=== PATIENT | female | born 1950 | race Caucasian/White ===

== ENCOUNTER 2017-03-30 09:38 | Emergency (ER) | payer OTHER, MEDICAID ==
[2017-03-30 09:44] VITALS: PULSE 84
--- NOTE | 2017-03-30 09:55 | EDPHY ---
H & P Time Seen by Provider: 03/30/17 09:46 HPI/ROS: CHIEF COMPLAINT: Injury to left forearm HISTORY OF PRESENT ILLNESS: Patient fell last night and tripped in to a car. She hit her head and her left forearm. No loss of consciousness and no headache today no vomiting. No visual symptoms. She has pain in her distal left forearm which is associated with bruising and swelling and is worse with movement of her hand or palpation. Started just after the fall. No syncope or loss of consciousness. REVIEW OF SYSTEMS: Eye: no change in vision Pulmonary: no cough or SOB Abdomen: No abdominal pain Musculoskeletal: no back pain or neck pain Skin: Bruising left forearm Neuro: no headache : No hematuria. A comprehensive 10 point review of systems is otherwise negative aside from elements mentioned in the history of present illness. PAST MEDICAL HISTORY: Includes bipolar and thyroid Social history: Smoker General Appearance: Alert and conversant, cooperative. Eyes: Pupils equal reactive ENT, Mouth: No facial deformity or swelling Respiratory: Normal respiratory effort, breath sounds equal, lungs are clear to auscultation. Cardiovascular: Regular rate and rhythm. Gastrointestinal: Abdomen is soft and non tender. Neurological: Alert and oriented x3. Normally conversant. Face symmetric, normal movement and sensation in all extremities. Skin: Bruising volar left distal forearm Musculoskeletal: Normal range of motion of the left shoulder and elbow. Hand is not tender. Wrist is not tender including snuffbox. Emergency Department course/MDM: Cervical thoracic and lumbar spine nontender. Spine cleared clinically. Does not have risk factors to suggest high likelihood of intracranial bleed or skull fracture. Left forearm x-ray. 1040: Discussed x-rays with the patient, reviewed them with her on the computer system. Warned she needs mandatory orthopedic follow-up this week, casting versus reduction in the office. Smoking Status: Current every day smoker Constitutional: Initial Vital Signs Temperature (C) 36.6 C 03/30/17 09:41 Heart Rate 84 03/30/17 09:41 Respiratory Rate 17 03/30/17 09:41 Blood Pressure 157/102 H 03/30/17 09:41 O2 Sat (%) 94 03/30/17 09:41 O2 Delivery Mode Room Air Allergies/Adverse Reactions: codeine Allergy (Verified 03/30/17 09:40) erythromycin base Allergy (Verified 03/30/17 09:40) meperidine [From Demerol] Allergy (Verified 03/30/17 09:40) morphine Allergy (Verified 03/30/17 09:40) Home Medications: Medication Instructions Recorded Geodon 03/30/17 LaMICtal 03/30/17 Synthroid 03/30/17 Wellbutrin 100mg (*) 03/30/17 Medical Decision Making - Diagnostics Imaging Results: Imaging Impressions Forearm X-Ray 03/30/17 09:52 Impression: Transverse minimally comminuted fracture of the distal radial metaphysis with mild dorsal angulation. Wrist X-Ray 03/30/17 10:40 Impression: Transverse comminuted intra-articular fracture of the distal radial metaphysis with mild dorsal angulation. Left wrist x-ray shows transverse distal radius fracture with very mild shorteningt. Procedures: Procedure: Splint placement. A left forearm Ortho Glass sugar-tong splint was applied. After application of the splint I returned and re-examined the patient. The splint was adequately immobilizing the joint and distal to the splint the patient's circulation and sensation was intact. Departure - Departure Disposition: Home, Routine, Self-Care Clinical Impression: Radius distal fracture Qualifiers: Encounter type: initial encounter Fracture type: closed Fracture morphology: other extra-articular Laterality: left Qualified Code(s): S52.552A - Other extraarticular fracture of lower end of left radius, initial encounter for closed fracture Condition: Good Instructions: Wrist Fracture in Adults (ED) Referrals: Luis Alberto Moran PA [Primary Care Provider] - As per Instructions Migue Hairston MD [Medical Doctor] - As per Instructions (Follow-up with this retail account specialist later this week for definitive evaluation and probable casting.)
[2017-03-30 11:38] VITALS: BP 151/87; RESP 16; TEMP 98.8; O2SAT 96
== END 2017-03-30 11:36 | disposition home or self-care (01) ==
DX: S52.572A Other intraarticular fracture of lower end of left radius, initial encounter for closed fracture (principal); F17.200 Nicotine dependence, unspecified, uncomplicated; W01.198A Fall on same level from slipping, tripping and stumbling with subsequent striking against other object, initial encounter

== ENCOUNTER → 2017-12-24 | Outpatient (CLI) | payer OTHER, MEDICAID ==
[~2017-12-24] MED LIST: LIDOCAINE 1% 300 MG/30 ML SDV ONE
== END ==
LOC: FIMAGING 08:34
PROVIDERS: ATTEND Surgery
PROC: 0G9K3ZX Drainage of Thyroid Gland, Percutaneous Approach, Diagnostic (ICD-10-PCS; principal; 2017-12-24)
DX: E04.1 Nontoxic single thyroid nodule (principal)

== ENCOUNTER 2018-02-08 06:26 | Observation (INO) | payer OTHER, MEDICAID ==
[2018-02-08] MEDS ORDERED: cefOXitin SODIUM 2 GM in STERILE WATER INJ 21 ML IV ONE (06:34)
[2018-02-08] MEDS ORDERED: LR 1,000 ML IV ONE (06:51)
[2018-02-08] MEDS ORDERED: LIDOCAINE 1% 2 ML INJ ID PRN (06:51)
[2018-02-08] MEDS ORDERED: BUPIVACAINE 0.5% 10 ML SDV ONE ×2 (07:18)
--- NOTE | 2018-02-08 07:25 | PDANEPAE ---
ANE Past Medical History - Cardiovascular History Hx Hypertension: No Hx Arrhythmias: No Hx Chest Pain: No Hx Coronary Artery / Peripheral Vascular Disease: No Hx CHF / Valvular Disease: No Hx Palpitations: No - Pulmonary History Hx COPD: No Hx Asthma/Reactive Airway Disease: No Hx Recent Upper Respiratory Infection: No Hx Oxygen in Use at Home: No Hx Sleep Apnea: No Sleep Apnea Screening Result - Last Documented: Positive - Neurologic History Hx Cerebrovascular Accident: No Hx Seizures: No Hx Dementia: No - Endocrine History Hx Diabetes: No Endocrine History Comment: HYPOTHYROID - NODULES - Renal History Hx Renal Disorders: No - Liver History Hx Hepatic Disorders: No - Neurological & Psychiatric Hx Hx Neurological and Psychiatric Disorders: Yes Neurological / Psychiatric History Comment: ANXIETY,DEPRESSION - Cancer History Hx Cancer: Yes Cancer History Comment: L HAND SQUAMOUS - Congenital Disorder History Hx Congenital Disorders: No - GI History Hx Gastrointestinal Disorders: No - Other Health History Other Health History: NEG - Chronic Pain History Chronic Pain: Yes (HEADACHES, BACK PAIN) - Surgical History Prior Surgeries: HYSTERECTOMY. TONSILLECTOMY ANE Review of Systems Review of Systems: - Exercise capacity METS (RN): 5 METS ANE Patient History - Allergies Allergies/Adverse Reactions: codeine Allergy (Verified 02/07/18 10:29) Rash erythromycin base Allergy (Verified 02/07/18 10:29) Rash meperidine [From Demerol] Allergy (Verified 02/07/18 10:29) Rash morphine Allergy (Verified 02/07/18 10:29) Rash - Home Medications Home Medications: Levothyroxine [Synthroid 100 mcg (*)] 100 mcg PO DAILY06 03/30/17 [Last Taken Unknown] Ziprasidone HCl [Geodon 40MG (*)] 80 mg PO BID 03/30/17 [Last Taken Unknown] buPROPion XL [Wellbutrin Xl] 150 mg PO DAILY 03/30/17 [Last Taken Unknown] lamoTRIgine [LamICTAL 100 MG (*)] 200 mg PO HS 03/30/17 [Last Taken Unknown] Ibuprofen [Motrin (*)] 200 mg PO DAILY PRN 02/07/18 [Last Taken Unknown] - NPO status NPO Since - Liquids (Date): 02/08/18 NPO Since - Liquids (Time): 05:00 NPO Since - Solids (Date): 02/07/18 NPO Since - Solids (Time): 17:00 - Smoking Hx Smoking Status: Current every day smoker - Family Anes Hx Family Hx Anesthesia Complications: NEG ANE Labs/Vital Signs - Vital Signs Blood Pressure: 139/88 Heart Rate: 76 Respiratory Rate: 16 O2 Sat (%): 94 Height: 165.1 cm Weight: 58.967 kg ANE Physical Exam - Airway Neck exam: FROM Mallampati Score: Class 2 Mouth exam: normal dental/mouth exam - Pulmonary Pulmonary: no respiratory distress - Cardiovascular Cardiovascular: regular rate and rhythym - ASA Status ASA Status: II ANE Anesthesia Plan Anesthesia Plan: general endotracheal anesthesia
[2018-02-08] MEDS ORDERED: DEXAMETHASONE 4 MG/ML VIAL ONE ×2 (07:27)
[2018-02-08] MEDS ORDERED: METOCLOPRAMIDE 10 MG/2 ML VIAL ONE (07:27)
[2018-02-08] MEDS ORDERED: ROCURONIUM 50 MG/5 ML VIAL ONE (07:27)
[2018-02-08] MEDS ORDERED: PROPOFOL 200 MG/20 ML VIAL ONE (07:27)
[2018-02-08] MEDS ORDERED: fentaNYL 250 MCG/5 ML INJ ONE (07:27)
[2018-02-08] MEDS ORDERED: KETOROLAC 30 MG/1 ML SDV ONE (07:27)
[2018-02-08] MEDS ORDERED: LIDOCAINE 2% 100 MG/5 ML SYR ONE (07:28)
--- NOTE | 2018-02-08 07:51 | PDHPUP ---
History & Physical Update H&P update statement: This history and physical update is based on an assessment of the patient which was completed after admission or registration (within 24 hours), but prior to the surgery/procedure. Addendum/clarification to H&P: patient has pelvic pain and a family history ( biological mother) of ovarian cancer. She requests B oopherectomy and salpingectomy. She has been counseled by both Dr. Sauceda and by PIT WORKER POWER SHOVEL MD. H&P update: no change in patient's condition since H&P completed, changes noted H&P changes: See above.
--- NOTE | 2018-02-08 10:03 | POSTOPPROG ---
Post Op Note Date of Operation: 02/08/18 Surgeon: Alexys Sauceda Sheet Metal Journeyman: Blossom Alex Anesthesiologist: Raymond Kraus Anesthesia: GET(General Endotracheal) Pre-op Diagnosis: LIH Post-op Diagnosis: indirect left inguinal hernia Procedure: lap LIH repair with mesh and exploration of the right side Findings: indirect left inguinal hernia Inf/Abcess present in the surg proc area at time of surgery?: No EBL: Minimal Complications: none
--- NOTE | 2018-02-08 10:06 | POSTOPPROG ---
Post Op Note Date of Operation: 02/08/18 Surgeon: Alexys Sauceda Wool Sampler: Blossom Alex; intraop consult: Dr. Luzmaria Marmolejo MD (DIRECTOR CHEMISTRY) Anesthesiologist: Raymond Kraus Anesthesia: GET(General Endotracheal) Pre-op Diagnosis: ovarian pain, famx history of ovarian CA (mother), hx transvaginal hysterec Post-op Diagnosis: same, and abscence of left ovary Indication: ovarian pain with radiation to back, famx history of ovarian CA ( mother) Procedure: lapRsalpingoopherectomy, excisionRroundligament, pelvicexploration, YASHIRA Findings: see below Inf/Abcess present in the surg proc area at time of surgery?: No EBL: Minimal Complications: none Specimen(s): to pathology. Findings: Absence of R ovary. Adhesions in pelvis. Ureter, psoas muscle, iliac vessels identified. Origin of ovarian vessels explored. DIRECTOR CHEMISTRY consulted intraoperatively.
[2018-02-08] MEDS ORDERED: ONDANSETRON 4 MG/2 ML VIAL IVP PRN (10:09)
[2018-02-08] MEDS ORDERED: ACETAMINOPHEN 325 MG TAB PO PRN (10:09)
[2018-02-08] MEDS ORDERED: ALBUTEROL 3 ML DEYVIAL IH PRN (10:11)
[2018-02-08] MEDS ORDERED: NALOXONE HCL 0.4 MG/ML INJ IVP PRN (10:11)
--- NOTE | 2018-02-08 10:12 | POSTANESTH ---
Post Anesthetic Evaluation Cardiovascular Status: Similar to Pre-Op Cond Respiratory Status: Similar to Pre-op Cond. Level of Consciousness/Mental Status: Mildly Sleepy, Arousable Pain Control: Adequate, Prn Tx Ordered Nausea/Vomiting Control: Adequate, Prn Tx Ordered Complications Possibly Related to Anesthesia: None Noted
[2018-02-08] MEDS ORDERED: fentaNYL 100 MCG/2 ML INJ ONE (10:54)
[2018-02-08] MEDS ORDERED: HYDROmorphONE/DILAUDID 2 MG/ML INJ ONE (10:54)
[2018-02-08] MEDS: fentaNYL 100 MCG/2 ML INJ IVP PRN ×2 (10:55→11:17)
[2018-02-08] MEDS: HYDROmorphONE/DILAUDID 1 MG/ML INJ IVP PRN ×3 (10:57→11:34)
[2018-02-08] MEDS: KETOROLAC 15 MG/1 ML SDV IVP SCH ×3 (13:13→23:22)
[2018-02-08] MEDS: HYDROCODONE/APAP 5/325 TAB PO PRN ×3 (14:47→21:43)
--- NOTE | 2018-02-08 19:37 | GCON ---
[f rep st] CONSULTATION INTRAOPERATIVE CONSULTATION REPORT I was called in by Dr. Alexys Sauceda intraoperatively. I was consulted to help visualize the left adnexa. Patient had already undergone inguinal hernia repair with mesh, and Dr. Alexys Sauceda had already removed the right ovary and tube without difficulty. He had dissected out and identified the left ureter, psoas muscle, iliac vessels, as well as the origin of the ovarian vessels. There was no left ovary or tube visualized. Discussed that it may have been removed during the vaginal hysterectomy she had several years ago. The patient was left in stable condition. /[id number]/MODL MTDD
[2018-02-08] MEDS: DOCUSATE SODIUM 100 MG CAP PO SCH (20:24)
[2018-02-08] MEDS: ZIPRASIDONE HCL 40 MG CAP PO SCH (20:26)
[2018-02-08] MEDS ORDERED: lamoTRIgine 100 MG TAB PO SCH (21:00)
[2018-02-08] MEDS ORDERED: PROMETHAZINE HCL 25 MG/ML INJ IVP PRN (22:04)
[2018-02-08] MEDS: CALCIUM CARBONATE 500 MG CHEWABLE TAB PO PRN (22:12)
[2018-02-09] MEDS: HYDROCODONE/APAP 5/325 TAB PO PRN ×2 (04:18→08:25)
[2018-02-09] MEDS: CALCIUM CARBONATE 500 MG CHEWABLE TAB PO PRN (04:21)
[2018-02-09] MEDS: KETOROLAC 15 MG/1 ML SDV IVP SCH ×2 (05:52→11:55)
[2018-02-09] MEDS ORDERED: LEVOTHYROXINE 100 MCG TAB PO SCH (06:00)
[2018-02-09 07:52] VITALS: O2SAT 92
[2018-02-09] MEDS: DOCUSATE SODIUM 100 MG CAP PO SCH (08:19)
[2018-02-09] MEDS: ZIPRASIDONE HCL 40 MG CAP PO SCH (08:19)
[2018-02-09] MEDS ORDERED: buPROPion XL 150 MG TAB PO SCH (09:00)
[2018-02-09] MEDS ORDERED: POLYETHYLENE GLYCOL 3350 17 GM PKT PO ONE (10:11)
--- NOTE | 2018-02-09 10:16 | ASMTCASEMG ---
Living Arrangements What is your living Answers: Alone arrangement? Who do you live with? Type Of Residence What kind of residence do Answers: House you live in? Discharge Plan Comments Coordination Status Comments Notes: Pt is a 68 y/o female admitted for fpat. Pt will most likely d/c independent when medically stable. No therapies ordered at this time. CM available for changes. Plan: Independent Date Signed: 02/09/2018 10:15 AM Electronically Signed By:JNO Richmond
[2018-02-09 10:45] VITALS: BP 115/79; PULSE 78; RESP 20; TEMP 98.1
--- NOTE | 2018-02-09 11:43 | ASMTLACE ---
MILLIE Length of stay for Answers: 1 day current admission Comorbidities - select Answers: Opioid dependence all that apply / Chronic pain # of Emergency department Answers: 0 visits in the last 6 months Social determinants Answers: Mental health diagnosis (anxiety, depression, pers onality disorders, etc.) Score: 8 Date Signed: 02/09/2018 11:42 AM Electronically Signed By:JON Richmond
--- NOTE | 2018-02-09 12:03 | SOAPPROG ---
SOAP Progress Note Assessment/Plan: Assessment/Plan: 68 Y F s/p lap LIH repair, R salpingooopherectomy, exploration for L ovary, POD#1. Discussed operative findings in detail. Suggested trying to obtain old operative /path reports but may not be obtainable since in 1989. Suspect that her R ovary was taken at time of hysterectomy. Can discuss further in outpatient setting. Miralax dose x 1. D/c to home today. S: pain controlled. feels swollen wound hernia repair site. no N/V. tearful yesterday regarding not finding a R ovary. O: alert, nad ncat ctab rrr abd soft, +BS, inc cdi, hernia repair intact, small L groin seroma 02/09/18 11:59 Objective: Vital Signs Temp Pulse Resp BP Pulse Ox 36.7 C 78 20 115/79 92 02/09/18 10:45 02/09/18 10:45 02/09/18 10:45 02/09/18 10:45 02/09/18 10:45 02/08/18 02/09/18 02/10/18 05:59 05:59 05:59 Intake Total 2200 Output Total 705 Balance 1495 ICD10 Worksheet Patient Problems: Problems Problem Status Onset Inguinal hernia Acute - ICD10 Problem Qualifiers (1) Inguinal hernia
[2018-02-10] MEDS ORDERED: ENOXAPARIN 40 MG/0.4 ML SYR SC SCH (09:00)
--- NOTE | 2018-02-15 06:04 | GOP ---
[f rep st] OPERATIVE REPORT DATE OF OPERATION: 02/08/2018 SURGEON: Alexys Sauceda MD HOME CARE ASSOCIATE: Blossom Alex PA-C. PREOPERATIVE DIAGNOSIS: 1. Left inguinal hernia. 2. Family history of ovarian cancer and pelvic pain. POSTOPERATIVE DIAGNOSIS: 1. Left inguinal hernia. 2. Family history of ovarian cancer and pelvic pain. PROCEDURE PERFORMED: 1. Laparoscopic left inguinal hernia repair with exploration of the right side. 2. Laparoscopic right salpingo-oophorectomy and excision of the left uterine round ligament. FINDINGS: The patient was found to have an indirect left inguinal hernia with no herniation seen on the right side. She was also found to have a small, but present, right ovary, but no ovary on the le ft side. She had a persistent round ligament, but no tube or ovary was identified on that side after extensive dissection and lysis of adhesions. Also had an intraoperative consultation with Dr. Marisa kohler, HANDLE BENDER. DESCRIPTION OF PROCEDURE: Patient taken to the operating room where she received satisfactory genera l endotracheal anesthesia by Dr. Kraus. She was placed in supine position, prepped and draped in the usual sterile fashion. An infraumbilical incision was made. Dissection was carried down to the rectus sheath which was incised. A subfascial tunnel was developed in the preperitoneal space. It w as dissected free with a balloon dissector which was replaced with a CO2 insufflation trocar. Two ot her trocars were placed in the midline under direct vision. Charanjit ligament was exposed bilaterally. The round ligaments were exposed bilaterally. There was no evidence of any herniation on the right side. On the left, a large indirect sac was dissected free from the round ligament and reduced. A Covidien polyester mesh patch was placed over the inguinal floor. The round ligament had been divide d with electrocautery. The entire inguinal floor was then covered by the patch, which was anchored i n place with AbsorbaTack, securing it to Charanjit ligament, to the lacunar ligament, and to the anterio r abdominal wall, and the lateral abdominal wall outside the internal ring. Pneumopreperitoneum was released and trocars were removed under direct vision. A Veress needle was then inserted through the infraumbilical incision. Pneumoperitoneum was established. A 5 mm trocar was introduced. Laparosc ope introduced. Two other trocars placed in the lower abdomen under direct vision. The right tube a nd ovary were elevated up, carefully dissected away from the ureter and the pelvic wall with the Harm onic Scalpel and these were placed in a specimen bag and removed. Attention was turned to the left s judit, which was covered up with multiple adhesions as well as the sigmoid colon. This was taken down with adhesiolysis, exposing that area, but no ovary could be identified on that side. The round liga ment segment was dissected free all the way back and removed but there was no ovarian component or tu be in that area and the uterus was absent. The ovarian vessels were traced from higher up in the ret roperitoneum and came to a end. There was no evidence of any buried or hidden ovary, and the pe ritoneum was opened widely over the ureter and the vessels in that area. We obtained a consult with Dr. Luzmaria Lerma during the procedure, who agreed that she could find no evidence of a left ovary. R ound ligament specimen was removed. The wound was irrigated. Hemostasis was assured. Trocars remov ed under direct vision. Trocar sites were closed with 0 Vicryl for the fascia and 4-0 Monocryl subcu ticular stitch for the skin. All wounds were infiltrated with 0.5% Marcaine. She tolerated the proc edure well. She was taken to the recovery room in good condition. The specimen was sent to Patholog y. COMPLICATIONS: None. /[id number]/MODL
== END 2018-02-09 12:30 | disposition home or self-care (01) ==
LOC: F3E 06:26
PROVIDERS: ADMIT Surgery; ATTEND Surgery
DX: K40.90 Unilateral inguinal hernia, without obstruction or gangrene, not specified as recurrent (principal); R10.2 Pelvic and perineal pain; E03.9 Hypothyroidism, unspecified; F31.9 Bipolar disorder, unspecified; R25.1 Tremor, unspecified; E55.9 Vitamin D deficiency, unspecified; Z87.891 Personal history of nicotine dependence; Z80.41 Family history of malignant neoplasm of ovary; Z90.711 Acquired absence of uterus with remaining cervical stump
CPT/HCPCS: 49650; 58661; 88305; C1727; C1781; J0694; J1100; J1170; J1885; J2001; J2405; J2550; J2704; J2765; J3010

== ENCOUNTER → 2018-02-18 | Outpatient (CLI) | payer OTHER, MEDICAID | LOC: FIMAGING 15:25 | PROVIDERS: ATTEND Surgery | DX: R22.42 Localized swelling, mass and lump, left lower limb (principal); M79.605 Pain in left leg ==

== ENCOUNTER 2018-08-08 18:46 | Observation (INO) | payer OTHER, MEDICAID ==
[2018-08-08] MEDS ORDERED: ONDANSETRON 4 MG/2 ML VIAL ONE (18:58)
[2018-08-08] MEDS ORDERED: NS 500 ML IV ONE (19:09)
[2018-08-08] MEDS ORDERED: ASPIRIN 81 MG CHEWABLE TAB PO ONE (19:09)
[2018-08-08 19:39] LABS: PLATELET COUNT 313 10^3/uL (150-400)
[2018-08-08 19:46] LABS: INR 0.87 (0.83-1.16)
--- NOTE | 2018-08-08 20:21 | EDPHY ---
H & P Time Seen by Provider: 08/08/18 19:08 HPI/ROS: HPI Insect bite. Chest pain. 68-year-old female by ambulance. This patient reports that at 4:00 p.m. This afternoon she was stung by a small be on the ventral aspect of her left foot 4th toe. She reports shortly after that she felt short of breath. She had hives over her arms in her chest. She reports that she went to urgent care. She received about 100 mg of Benadryl and was given dexamethasone. She did not receive any epinephrine. She felt better after this and then was sent home. When she got home at approximately 5-6 p.m. She developed which she described as sharp chest tightness. She also felt faint and lightheaded. She reports that this sensation migrated up through her right medial and lateral chest wall and up into her neck. She then called 911 and was brought to the emergency department. She is now feeling better that she is here. She is a smoker. She has a history of hyperlipidemia as well. No other cardiac risk factors other than age. ROS: Constitutional: No fever, no chills. No weakness. Eyes: No discharge. No changes in vision. ENT: No sore throat. No nasal congestion or rhinorrhea. Respiratory: No cough. As above. Cardiac: As above, no palpitations. Gastrointestinal: No abdominal pain, no vomiting, no diarrhea. Genitourinary: No hematuria. No dysuria or increased frequency with urination. Musculoskeletal: No back pain. No neck pain. No myalgias or arthralgias. Skin: As above. Neurological: No headache. No focal weakness or altered sensation. Past medical history: Hypothyroid, depression, anxiety. Social history: Smoker. No alcohol. Currently here by herself. Physical Exam: General Appearance: Alert, no distress. This patient is responding to questions appropriately and in full sentences. This patient appears well- hydrated and well-nourished. Eyes: Pupils equal and round no pallor or injection. No lid edema, erythema or injection. ENT, Mouth: Mucous membranes are moist. The pharyngeal tissues are unremarkable. No edema or swelling. No asymmetry suggestive of abscess. No erythema or exudates. No stridor on auscultation of her neck. No voice changes per Respiratory: There are no retractions, lungs are clear to auscultation with good air movement bilaterally. Cardiovascular: Regular rate and rhythm. No murmur. Gastrointestinal: Abdomen is soft and nontender, no masses, bowel sounds normal. No focal tenderness at McBurney's point. No Winn sign. Neurological: Motor sensory function is grossly intact. Cranial nerves are normal. Gait is normal. Skin: Warm and dry, no rashes. Musculoskeletal: Neck is supple and nontender. Extremities are symmetrical. All joints range without pain or impingement. Psychiatric: No agitation. No depression. Database: EKG: EKG time is 6:51 p.m.; EKG shows a narrow complex normal sinus rhythm with a ventricular rate of 81. Left anterior fascicular block noted. The CO, QRS, QT intervals are within normal limits. There are no ST-T wave changes indicative of ischemic or injury pattern. No evidence of right heart strain. Interpreted by me. Imaging: Chest x-ray AP portable: The cardiac mediastinal silhouette is unremarkable. No pneumothorax. No infiltrate. No acute cardiopulmonary abnormality. Procedures: Emergency department course: Triage vital signs reviewed. She is moderately hypertensive. Vital signs are otherwise normal. She was given aspirin. IV placed. She was placed on a personnel monitor. EKG obtained and reviewed by myself. 8:30 p.m.. The patient is a heart score of 4. This puts her in the moderate risk category. I discussed the interpretation of this score. She is in agreement to be admitted to the hospital for observation and further testing overnight. Hospitalist paged. 8:45 p.m., spoke with on-call hospitalist. Case discussed in detail. Patient accepted for admission to the hospitalist service telemetry observation. Her remaining emergency department course under my care has been uneventful. She was admitted in stable condition to the hospitalist service. Differential Diagnosis: The differential diagnosis on this patient includes but is not limited to allergic reaction, acute coronary syndrome. Pulmonary embolism, aortic dissection, myocarditis, pericarditis, the pneumothorax unlikely. This represents a partial list of diagnoses considered. These considerations are based on history, physical exam, past history, reassessment and diagnostic testing. Smoking Status: Current every day smoker Constitutional: Initial Vital Signs Temperature (C) 36.7 C 08/08/18 18:46 Heart Rate 80 08/08/18 18:46 Respiratory Rate 18 08/08/18 18:46 Blood Pressure 156/85 H 08/08/18 18:46 O2 Sat (%) 95 08/08/18 18:46 O2 Delivery Mode Room Air Allergies/Adverse Reactions: codeine Allergy (Verified 08/08/18 21:08) Rash erythromycin base Allergy (Verified 08/08/18 21:08) Rash meperidine [From Demerol] Allergy (Verified 08/08/18 21:08) Rash morphine Allergy (Verified 08/08/18 21:08) Rash Home Medications: Medication Instructions Recorded Levothyroxine [Synthroid 100 mcg 100 mcg PO DAILY06 03/30/17 (*)] Ziprasidone HCl [Geodon 40MG (*)] 80 mg PO HS 03/30/17 lamoTRIgine [LamICTAL 100 MG (*)] 200 mg PO HS 03/30/17 Ibuprofen [Motrin (*)] 600 mg PO TID PRN 02/07/18 Bupropion HCl [Wellbutrin Xl] 300 mg PO DAILY 08/08/18 EPINEPHrine [Epipen 0.3 MG] 0.3 mg IM ONCE #2 syr 08/09/18 Medical Decision Making - Data Points Laboratory Results: Laboratory Results 08/08/18 19:05 08/08/18 19:05 Medications Given: Discontinued Medications Aspirin (Aspirin) 324 mg PO EDNOW ONE Stop: 08/08/18 19:10 Last Admin: 08/08/18 19:20 Dose: 324 mg Bismuth Subsalicylate (Pepto-Bismol) 524 mg PO QID PRN PRN Reason: Dyspepsia Stop: 02/04/19 23:53 Last Admin: 08/09/18 08:17 Dose: 524 mg Diphenhydramine HCl (Benadryl) 25 mg PO Q6HRS PRN PRN Reason: Itching Stop: 02/04/19 23:18 Last Admin: 08/08/18 23:44 Dose: 25 mg Enoxaparin Sodium (Lovenox) 40 mg SC DAILY MÓNICA Stop: 02/05/19 08:59 Last Admin: 08/09/18 09:23 Dose: 40 mg Sodium Chloride (Ns) 500 mls @ 1,000 mls/hr IV EDNOW ONE PRN Reason: Protocol Stop: 08/08/18 19:38 Last Admin: 09/10/18 19:21 Dose: 500 mls Ibuprofen (Motrin) 600 mg PO TID PRN PRN Reason: Pain, Mild Stop: 02/04/19 23:18 Last Admin: 08/09/18 06:56 Dose: 600 mg Lamotrigine (Lamictal) 200 mg PO HS [facility] Stop: 02/04/19 23:29 Last Admin: 08/08/18 23:45 Dose: 200 mg Nicotine (Nicoderm Cq) 21 mg TD DAILY [facility] Stop: 02/05/19 08:59 Last Admin: 08/09/18 09:21 Dose: 21 mg Ziprasidone (Geodon) 80 mg PO HS [facility] Stop: 02/04/19 23:29 Last Admin: 08/08/18 23:45 Dose: 80 mg Point of Care Test Results: Chemistry 08/08/18 18:56 POC Troponin I 0.01 ng/mL ng/mL (0.00-0.08) Departure - Departure Disposition: [facility]patient Acute Clinical Impression: Chest pain
[2018-08-08] MEDS ORDERED: ONDANSETRON DISINTEGRATING 4 MG TAB PO PRN (22:52)
[2018-08-08] MEDS ORDERED: ONDANSETRON 4 MG/2 ML VIAL IVP PRN (22:52)
[2018-08-08] MEDS ORDERED: ACETAMINOPHEN 325 MG TAB PO PRN (22:52)
[2018-08-08] MEDS ORDERED: diphenhydrAMINE 25 MG CAP PO PRN (23:19)
[2018-08-08] MEDS ORDERED: lamoTRIgine 100 MG TAB PO SCH (23:30)
[2018-08-08] MEDS ORDERED: ZIPRASIDONE HCL 40 MG CAP PO SCH (23:30)
--- NOTE | 2018-08-08 23:35 | CPEKG ---
Test Reason : OPEN Blood Pressure : / mmHG Vent. Rate : 081 BPM Atrial Rate : 079 BPM P-R Int : 150 ms QRS Dur : 097 ms QT Int : 374 ms P-R-T Axes : 045 -62 063 degrees QTc Int : 434 ms Sinus rhythm Left anterior fascicular block Confirmed by Preston Lerma ([id number]) on 08/08/2018 11:34:48 PM Referred By: Confirmed By:Preston Lerma
[2018-08-08] MEDS: IBUPROFEN 200 MG TAB PO PRN (23:45)
[2018-08-09] MEDS: BISMUTH SUBSALICYLATE 524 MG/30 ML UDL PO PRN ×2 (00:16→08:17)
--- NOTE | 2018-08-09 02:12 | PDGENHP ---
History and Physical - Chief Complaint Chest pain - History of Present Illness 68 yo F w/ hx of depression and anxiety presents with chest pain. She was stung by a bee today around 4 PM. Shortly after this she began to experience chest pain at rest that radiated to her R arm and R jaw. This lasted about 2 hours. She denies associated symptoms. She tells me she occasionally has similar pain but has never had a cardiac evaluation. She smokes 15 cigarettes daily and has done so for >40 years. She has no family hx of CAD. She is chest pain free at this time. Case discussed with Dr. Moran; records reviewed in EMR. History Information - Allergies/Home Medication List Allergies/Adverse Reactions: codeine Allergy (Verified 08/08/18 21:08) Rash erythromycin base Allergy (Verified 08/08/18 21:08) Rash meperidine [From Demerol] Allergy (Verified 08/08/18 21:08) Rash morphine Allergy (Verified 08/08/18 21:08) Rash Home Medications: Levothyroxine [Synthroid 100 mcg (*)] 100 mcg PO DAILY06 03/30/17 [Last Taken ] Ziprasidone HCl [Geodon 40MG (*)] 80 mg PO HS 03/30/17 [Last Taken 08/07/18] lamoTRIgine [LamICTAL 100 MG (*)] 200 mg PO HS 03/30/17 [Last Taken Unknown] Ibuprofen [Motrin (*)] 600 mg PO TID PRN 02/07/18 [Last Taken 08/08/18] Bupropion HCl [Wellbutrin Xl] 300 mg PO DAILY 08/08/18 [Last Taken 08/08/18] I have personally reviewed and updated: family history, medical history - Past Medical History Additional medical history: Depression. Anxiety - Surgical History Reports: hernia repair - Family History Negative for: CAD Additional family history: Denies family hx of CAD - Social History Smoking Status: Current every day smoker Review of Systems Review of Systems: ROS: 10pt was reviewed & negative except for what was stated in HPI & below Physical Exam Physical Exam: Temp Pulse Resp BP Pulse Ox 36.6 C 84 23 H 134/81 H 92 08/08/18 21:45 08/08/18 21:45 08/08/18 21:45 08/08/18 21:45 08/08/18 21:45 Constitutional: no apparent distress, not in pain Eyes: PERRL, EOMI Ears, Nose, Mouth, Throat: moist mucous membranes, no oral mucosal ulcers Cardiovascular: regular rate and rhythym, no murmur, rub, or gallop Respiratory: no respiratory distress, clear to auscultation Gastrointestinal: normoactive bowel sounds, soft, non-tender abdomen Skin: warm, normal color Musculoskeletal: full muscle strength, no muscle tenderness Neurologic: AAOx3, CN II-XII Intact Psychiatric: interacting appropriately, not anxious Lab Data & Imaging Review 08/08/18 19:05 08/08/18 19:05 WBC 8.84 10^3/uL (3.80-9.50) 08/08/18 19:05 RBC 5.74 10^6/uL (4.18-5.33) H 08/08/18 19:05 Hgb 17.5 g/dL (12.6-16.3) H 08/08/18 19:05 Hct 50.4 % (38.0-47.0) H 08/08/18 19:05 MCV 87.8 fL (81.5-99.8) 08/08/18 19:05 MCH 30.5 pg (27.9-34.1) 08/08/18 19:05 MCHC 34.7 g/dL (32.4-36.7) 08/08/18 19:05 RDW 14.2 % (11.5-15.2) 08/08/18 19:05 Plt Count 313 10^3/uL (150-400) 08/08/18 19:05 MPV 9.6 fL (8.7-11.7) 08/08/18 19:05 Neut % (Auto) 58.9 % (39.3-74.2) 08/08/18 19:05 Lymph % (Auto) 31.8 % (15.0-45.0) 08/08/18 19:05 [place] % (Auto) 7.8 % (4.5-13.0) 08/08/18 19:05 Eos % (Auto) 0.8 % (0.6-7.6) 08/08/18 19:05 Baso % (Auto) 0.2 % (0.3-1.7) L 08/08/18 19:05 Nucleat RBC Rel Count 0.0 % (0.0-0.2) 08/08/18 19:05 Absolute Neuts (auto) 5.21 10^3/uL (1.70-6.50) 08/08/18 19:05 Absolute Lymphs (auto) 2.81 10^3/uL (1.00-3.00) 08/08/18 19:05 Absolute Monos (auto) 0.69 10^3/uL (0.30-0.80) 08/08/18 19:05 Absolute Eos (auto) 0.07 10^3/uL (0.03-0.40) 08/08/18 19:05 Absolute Basos (auto) 0.02 10^3/uL (0.02-0.10) 08/08/18 19:05 Absolute Nucleated RBC 0.00 10^3/uL (0-0.01) 08/08/18 19:05 Immature Gran % 0.5 % (0.0-1.1) 08/08/18 19:05 Immature Gran # 0.04 10^3/uL (0.00-0.10) 08/08/18 19:05 PT 12.0 SEC (12.0-15.0) 08/08/18 19:05 INR 0.87 (0.83-1.16) 08/08/18 19:05 APTT 26.5 SEC (23.0-38.0) 08/08/18 19:05 Sodium 132 mEq/L (135-145) L 08/08/18 19:05 Potassium 4.5 mEq/L (3.3-5.0) 08/08/18 19:05 Chloride 96 mEq/L (97-110) L 08/08/18 19:05 Carbon Dioxide 25 mEq/l (22-31) 08/08/18 19:05 Anion Gap 11 mEq/L (8-16) 08/08/18 19:05 BUN 18 mg/dL (7-23) 08/08/18 19:05 Creatinine 0.8 mg/dL (0.6-1.0) 08/08/18 19:05 Estimated GFR > 60 08/08/18 19:05 Glucose 114 mg/dL (70-100) H 08/08/18 19:05 Calcium 10.1 mg/dL (8.5-10.4) 08/08/18 19:05 POC Troponin I 0.01 ng/mL (0.00-0.08) 08/08/18 18:56 Imaging Review: Imaging Impressions Chest X-Ray 08/08/18 19:09 IMPRESSION: No evidence for acute cardiopulmonary abnormality. Visualized and Interpreted EKG results: Yes EKG Interpretation: Positive for: normal sinsus rhythm Assessment & Plan Assessment: 68 yo F w/ hx of depression and anxiety presents with chest pain. Plan: 1. Chest pain - Some concerning features in that pain was severe, lasted 2 hours , and radiated to jaw and arm. Her work-up thus far is reassuring in that ECG( personally interpreted) reveals no acute ischemia and troponin is negative. HEART score of 4 indicative of need for further observation. - Admit to PCU for observation - Monitor on telemetry, trend cardiac enzymes - Treadmill exercise stress test ordered for the morning 2. Bee sting - Denies respiratory symptoms or dysphagia. She is still having some skin itching. - Benadryl PRN 3. Depression, anxiety - Continue home medications Diet - NPO @ MN Code - Full Ppx - LMWH Dispo - Admit under observation status
[2018-08-09 05:30] LABS: PLATELET COUNT 260 10^3/uL (150-400)
[2018-08-09] MEDS ORDERED: LEVOTHYROXINE 100 MCG TAB PO SCH (06:00)
[2018-08-09] MEDS: IBUPROFEN 200 MG TAB PO PRN (06:56)
[2018-08-09 08:14] VITALS: BP 161/92
[2018-08-09] MEDS ORDERED: IBUPROFEN 600 MG TAB PO PRN (08:30)
[2018-08-09] MEDS ORDERED: buPROPion XL 150 MG TAB PO SCH (09:00)
[2018-08-09] MEDS ORDERED: NICOTINE 21 MG/24 HR PATCH TD SCH (09:00)
[2018-08-09] MEDS ORDERED: ENOXAPARIN 40 MG/0.4 ML SYR SC SCH (09:00)
--- NOTE | 2018-08-09 10:48 | CPR ---
DATE OF PROCEDURE: 08/09/2018 PROCEDURE: Exercise treadmill stress test. REASON FOR STRESS TEST: Chest pain. Resting EKG shows a regular sinus rhythm with occasional PVC. Resting heart rate 81, resting blood p ressure 122/80. STRESS PORTION: She was exercised according to the Maldonado protocol for a total of 6 minutes. She bridgette ched a MET level of 7.1, maximal heart rate 136, maximal blood pressure 170/80. She had no chest dis comfort with exertion. Her EKG did show occasional PVCs and occasional couplets. RECOVERY: She did spontaneously recover. Within 2 minutes, her heart rate was at 98, blood pressure 130/80. She remained asymptomatic throughout. Resting EKG shows a regular sinus rhythm. Tracings were reviewed with Dr. Pranav Robbins. At this time, she currently is stable to return to her room. /[id number]/MODL
--- NOTE | 2018-08-09 10:59 | ASDISCHSUM ---
Discharge Information Plan Status:Home with No Needs Medically Cleared to Leave:08/09/2018 Discharge Date:08/09/2018 CM D/C Disposition:Home, Routine, Self-Care ADT D/C Disposition:Home, Routine, Self-Care Projected Discharge Date:08/09/2018 Transportation at D/C:Family Discharge Delay Reason: Follow-Up Date:08/09/2018 Discharge Slot: Final Diagnosis: Placement Information Patient Contact Information Contact Name:REBEKA Relationship:Javad Address: Work Phone: City: [facility] Phone: State/[place] Code: Email: Financial Information Financial Class:Medicare Primary Plan Desc:MEDICARE OUTPATIENT Primary Plan Number:[id number] Secondary Plan Desc:MEDICAID HEALTH [place] Secondary Plan Number:[id number] Assessment Information LACE LACE Length of stay for Answers: Less than 1 day current admission Acuity / Level of Answers: No Care: Did the patient have an inpatient admission? Comorbidities - select Answers: Opioid dependence all that apply / Chronic pain Other Notes: Hypothyroid # of Emergency department Answers: 1-2 visits in the last 6 months Social determinants Answers: Mental health diagnosis (anxiety, depression, pers onality disorders, etc.) Score: 9 Date Signed: 08/09/2018 10:57 AM Electronically Signed By:Radha Ferrara RN CAGE Questionnaire CAGE Do you feel you ought to Answers: No cut down on your drinking or drug use? Do people annoy you by Answers: No criticizing your drinking or drug use? Do you drink or use drugs Answers: No first thing in the morning ([employer])? Additional Comments Pt has 20 + years of sobriety from ETOH. Daily user of marijuana approximately 1/2 joint. Anand jacob. Declined resources. Date Signed: 08/09/2018 10:57 AM Electronically Signed By:Radha Ferrara RN Intervention Information Intervention Type:*MERCER-Signed Date of Service:08/09/2018 10:20 AM Patient Type:Observation Staff Member:Radha Grier Hours: Discipline: Severity: Comment:
--- NOTE | 2018-08-09 17:55 | GDS ---
DISCHARGE DIAGNOSES: 1. Chest pain. 2. Anaphylaxis due to bee sting. HISTORY: The patient is a 68-year-old female, who was stung by a bee and about 10 minutes later deve loped a whole body reaction including chest pain. She developed urticaria, massive foot swelling at the site of the bite and all-over flushing. She was admitted to the hospital for workup of her chest pain. Serial troponins and EKGs were negative. Exercise stress test was normal and she is cleared by Cardiology to discharge home. She has concerns regarding her near complete anaphylactic reaction to this bee sting and requested a prescription for an EpiPen which I provided. She will follow up closely with her primary care. DISCHARGE MEDICATIONS: Please see computerized record for full detailed list. New medications: EpiP en 0.3 mg IM as needed. Patient was seen and examined by me on the day of discharge. /[id number]/MODL
== END 2018-08-09 11:38 | disposition home or self-care (01) ==
LOC: EDUNIT# → F2W 21:23
PROVIDERS: ADMIT Internal Medicine; ATTEND Internal Medicine
DX: R07.89 Other chest pain (principal); T63.441A Toxic effect of venom of bees, accidental (unintentional), initial encounter; E86.9 Volume depletion, unspecified; Z91.030 Bee allergy status; F17.210 Nicotine dependence, cigarettes, uncomplicated; E78.5 Hyperlipidemia, unspecified; E03.9 Hypothyroidism, unspecified; F41.8 Other specified anxiety disorders
CPT/HCPCS: 71045; 93005; 93017; 96360; 96372; 99285; G0378; J1650; 84484-PO; J2405